=== PATIENT | male | born 1950 | race Caucasian/White ===

== ENCOUNTER 2023-06-15 07:25 | Day surgery (SDC) | payer OTHER ==
[2023-06-08 13:59] LABS: BASOPHILS % (AUTO) 0.3 % (0-1); EOSINOPHILS # (AUTO) 0.2 X10'3 (0-0.9); EOSINOPHILS % (AUTO) 1.3 % (0-6); LYMPHOCYTES % (AUTO) 19.7 % (21-51); MEAN CORPUSCULAR HEMOGLOBIN 31.2 PG (27.0-31.0); MEAN CORPUSCULAR HGB CONC 33.5 g/dL (33.0-36.5); MEAN CORPUSCULAR VOLUME 92.9 FL (78-98); MEAN PLATELET VOLUME 7.9 FL (7.4-10.4); MONOCYTES % (AUTO) 6.5 % (2-12); NEUTROPHILS # (AUTO) 11.1 X10'3 (1.8-7.7); NEUTROPHILS % (AUTO) 72.2 % (42-75); PRE OP HEMATOCRIT 49.1 % (42.0-52.0); PRE OP HEMOGLOBIN 16.5 g/dL (14.0-17.9); PRE OP PLATELET COUNT 309 X10'3 (140-440); RED BLOOD COUNT 5.28 X10'6 (4.70-6.10); RED CELL DISTRIBUTION WIDTH 14.9 % (11.5-14.5)
[2023-06-08 14:08] LABS: ALBUMIN 3.7 G/DL (3.4-5.0); ALBUMIN/GLOBULIN RATIO 1.1 (1.1-1.5); ALKALINE PHOSPHATASE 60 IU/L (46-116); BLOOD UREA NITROGEN 10 MG/DL (7-18); BUN/CREATININE RATIO 8.3 (10.0-20.0); CHLORIDE 106 MMOL/L (99-107); PRE OP ALT 20 U/L (30-65); PRE OP ANION GAP 10 (8-16); PRE OP AST 14 U/L (10-37); PRE OP BILIRUB, TOTAL 0.6 MG/DL (0.0-1.0); PRE OP GLUCOSE 90 MG/DL (70-104); PRE OP POTASSIUM 3.8 MMOL/L (3.4-5.1); PRE OP SODIUM 140 MMOL/L (135-145); TOTAL CARBON DIOXIDE 23.8 MMOL/L (24-32); TOTAL PROTEIN 7.2 G/DL (6.4-8.2); eGFR 60 ML/MIN
[2023-06-08 14:36] LABS: PRE OP WHITE BLOOD COUNT 15.4 10'3 (4.8-10.8)
[~2023-06-15] VITALS: Ht 180.3 cm; Wt 77.9 kg
[2023-06-15] VITALS (8 sets, daily range): BP systolic 127–156; BP diastolic 70–99; PULSE 49–63; RESP 13–16; TEMP 98.1; O2SAT 97–100
[~2023-06-15 07:25] MED LIST: ASPI81TA52 PO; GABA300C PO; MVI; VITAMIN C; ZINC; cefazolin 2gm/D5W 100mL 100 ML IV ONE; famotidine 20mg tablet PO ONE; ringers solution, lacted 1,000 ML IV SCH
[2023-06-15] MEDS ORDERED: morphine 4 MG/ML inj SYRINge IV PRN (10:25)
[2023-06-15] MEDS ORDERED: acetaminophen 1,000mg/100ml IV 100 ML IV PRN (10:25)
[2023-06-15] MEDS ORDERED: hydrALAZINE 20mg/ml inj. IV PRN (10:25)
[2023-06-15] MEDS ORDERED: morphine 2 MG/ML inj. syringe IV PRN (10:25)
[2023-06-15] MEDS ORDERED: labetalol 20mg/4ml (5mg/ml) syringe IV PRN (10:25)
[2023-06-15] MEDS ORDERED: proCHLORperazine 10 MG/2 ml inj IV PRN (10:25)
[2023-06-15] MEDS ORDERED: meperidine/PF 25mg/ml syringe IV PRN ×3 (10:25)
[2023-06-15] MEDS ORDERED: ringers solution, lacted 1,000 ML IV SCH (10:25)
[2023-06-15] MEDS ORDERED: ondansetron/PF 4mg/2ml inj IV PRN (10:25)
[2023-06-15] MEDS ORDERED: sevoflurane 250ml liquid IH ONE (10:36)
[2023-06-15] MEDS ORDERED: BUPIVAcaine/PF 2.5mg/ml (0.25%) 10ml vial IJ ONE (10:40)
[2023-06-15] MEDS ORDERED: fentaNYL/PF 50MCG/1 ML 2ML syringe ONE (10:40)
[2023-06-15] MEDS ORDERED: midazolam 1 mg/ML 2ml injection ONE (10:41)
[2023-06-15] MEDS ORDERED: dexamethasone sod phosphate 4mg/ml inj. ONE (10:55)
[2023-06-15] MEDS ORDERED: LIDOcaine 2% (20mg/ml) 5ml vial ONE (10:55)
[2023-06-15] MEDS ORDERED: ondansetron/PF 4mg/2ml inj ONE (10:55)
[2023-06-15] MEDS ORDERED: glycopyrrolate 0.2mg/ml inj ONE (10:55)
[2023-06-15] MEDS ORDERED: propofol inj 20 ML IV ONE (10:55)
--- NOTE | 2023-06-15 11:50 | NUR ---
Received from OR via BED, accompanied by Anesthesiologist and report given by Anesthesiologist. PATIENT WAKING UP, NO S/S OF PAIN, V/S WNL, SCD ON, 20G TO LUE, ABDOMEN LAP SITE CLEAN W/ NO S/S OF COMPLICATIONS
[2023-06-15] MEDS ORDERED: BUPIVAcaine/PF 2.5mg/ml (0.25%) 10ml vial ONE (11:54)
[2023-06-15] MEDS ORDERED: ketorolac tromethamine 15mg/ml inj. IV ONE (12:00)
[2023-06-15] MEDS ORDERED: HYDROcodone/acetaminophen 10/325mg tab PO ONE (12:00)
--- NOTE | 2023-06-15 12:17 | NUR ---
2ND DEGREE TYPE [address] MCKENNA AWARE AND STATED PATIENT WAS DOING THIS PRIOR WELL IN OR. WILL MONITOR FOR CHANGES
--- NOTE | 2023-06-15 12:50 | NUR ---
PATIENT A&OX4, 1ST DEGREE BLOCK ON STRIPS NOW AND OK FOR D/C PER DR MCKENNA. DENIES PAIN, V/S WNL, SCD OFF, 20G TO LUE D/C, ABDOMEN LAP SITE CLEAN W/ NO S/S OF COMPLICATIONS AND ABD BINDER ON. I HAVE REVIEWED D/C INSTRUCTIONS WITH PATIENT AND HE HAS VERBALIZED UNDERSTANDING. PATIENT D/C HOME WITH ALL BELONGINGS AND GAVE TRANSPORT.
== END 2023-06-15 12:50 | disposition home or self-care (01) ==
LOC: PAS 07:25
PROVIDERS: ATTEND Surgery
DX: K40.90 Unilateral inguinal hernia, without obstruction or gangrene, not specified as recurrent (principal); D17.6 Benign lipomatous neoplasm of spermatic cord; Z96.651 Presence of right artificial knee joint; Z79.82 Long term (current) use of aspirin; Z79.899 Other long term (current) drug therapy
CPT/HCPCS: 36415; 49505; 80053; 82948; 85025; C1781; J0131; J0690; J1100; J1885; J2250; J2405; J2704; J3010; J3490; J7030; J7120; Z7506; Z7508; Z7512; A4215; A4618; A6449; A7000